=== PATIENT | female | born 1950 | race Caucasian/White ===

== ENCOUNTER 2025-06-04 15:01 | Inpatient (IN) | payer MEDICARE, BC ==
[~2025-06-04] VITALS: Ht 165.1 cm; Wt 99.0 kg
[2025-06-04 15:53] LABS: LEUKOCYTE ESTERASE ,URINE NEGATIVE (Neg); NITRITES, URINE NEGATIVE (Neg); OCCULT BLOOD,URINE MODERATE (Neg); UA COLLECTION TYPE FOLEY CATH
[2025-06-04] MEDS ORDERED: LEVO150T8 PO (15:53)
[2025-06-04] MEDS ORDERED: GABA300T25 PO (15:53)
[2025-06-04] MEDS ORDERED: CHOL500044 PO (15:53)
[2025-06-04] MEDS ORDERED: HYDR-3972 PO (15:53)
[2025-06-04] MEDS ORDERED: ROSU10TA72 PO (15:53)
[2025-06-04] MEDS ORDERED: CELE-148 PO (15:53)
[2025-06-04] MEDS ORDERED: DICY20TA17 PO (15:53)
[2025-06-04] MEDS ORDERED: MONT-40 PO (15:53)
[2025-06-04] MEDS ORDERED: LISI20TA28 PO (15:53)
[2025-06-04 15:56] LABS: MEAN PLATELET VOLUME 9.5 FL (7.4-10.4); RED CELL DISTRIBUTION WIDTH 16.5 % (11.5-14.5)
--- NOTE | 2025-06-04 15:57 | Physician Documentation ---
History of Present Illness ~ Chief Complaint: ALOC Stated Complaint: ACUTE RENAL FAILURE Time Seen by MD: 15:40 Source: patient (11), RN/MD (transfer facility) HPI Patient transferred to us from [facility] for possible stroke. Patient herself has some word-finding difficulty and word salad, but transferring physician indicates the last known normal was about 8:00 p.m.. She was noted last night to be slurring, to have some dysphagia, and dropping things, unable to hold a coffee cup in her hand. There was some questionable confusion as well. Patient tells me that she has some numbness to the left face and arm, but it appears this might have been secondary to a neck surgery that she had in September and symptoms are not new. CT was performed at the transferring facility but the patient showed no acute pathology. She was found to have an acute kidney injury as well as potassium level of 6.8, and was treated with calcium, albuterol, insulin/D50 prior to coming in. She also received 2L intravenous fluid resuscitation. Patient denies checking her temperature but might have been febrile over the last day or two, and is found to have a low-grade temperature of 100.2 on arrival. She was transferred here for further neurologic evaluation. Labs from transferring facility: WBC 11.4, hemoglobin 10.7, hematocrit 34.1, platelets 203 Protime 11.6 Glucose 104, BUN 78, creatinine 4.3, GFR 10, calcium level 8.9, CO2 15, chloride 102, sodium 134, potassium 6.4, magnesium 2.2, transaminase: AST 32, ALT 12, alk-phos 64 troponin normal at 0.049, urinalysis 0-2 white cells 5-10 red cells, negative nitrite and leukocyte CT brain: No intracranial hemorrhage, no extra-axial collection, slight hyperdensity along the falx is favored to relate to calcification and not layering hemorrhage. No mass or mass effect. Decker-white matter differentiation preserved. Ventricles/sulci appropriate for patient age. Focally severe intracranial carotid atherosclerosis. EKG sinus rhythm 88 with a first-degree AV block and nonspecific ST abnormalities. Urinalysis was still pending Medication Reconciliation Allergies: Uncoded Allergies: BEE (Adverse Reaction, Unknown, ANAPHALAXIS, 06/04/25) Scheduled Celecoxib (Celecoxib), 1 CAP PO BID, (Reported) Cholecalciferol (Vitamin D3) (Vitamin D3), 1 TAB PO DAILY, (Reported) Gabapentin (Gralise), 300 MG PO DAILY, (Reported) Levothyroxine Sodium (Levothyroxine Sodium), 1 TAB PO DAILY, (Reported) Lisinopril (Lisinopril), 1 TAB PO DAILY, (Reported) Montelukast Sodium (Montelukast Sodium), 1 TAB PO HS, (Reported) Scheduled PRN Hydrocodone Bit/Acetaminophen (Hydrocodon-Acetaminophn 10-325 tablet), 1-2 TAB PO Q4H PRN for severe pain, (Reported) Miscellaneous Medications Dicyclomine HCl (Dicyclomine HCl), 1 TAB PO, (Reported) Rosuvastatin Calcium (Rosuvastatin Calcium), 1 TAB PO, (Reported) Past Medical History Past Medical History: High Cholesterol, Hypertension, Thyroid (unspecified) Smoking Status: Current some day smoker Alcohol Use: None Drug Use: none Review of Systems All Other Systems at this time: Reviewed and Negative Physical Exam Vital Signs: Temperature: 100.2, Heart Rate: 107, Respiratory Rate: 19, BP: 74/53, Pulse Oximetry: 94, Weight: 99.000 General Appearance General: Pt is awake, alert, oriented x4 in no acute distress, but is having difficulty communicating due to word finding difficulty and "word salad." Head: Normocephalic and atraumatic. Eyes: Conjunctiva normal. ENT: Mucous membranes moist. Neck: Supple. Chest: Clear to auscultation bilaterally, without rales, rhonchi, or wheezes. There is no accessory muscle use or retractions. Cardiac: Regular rate and rhythm without murmurs, gallops or rubs. Palpation of the chest wall is normal. Abd: Soft, nondistended, nontender, with normoactive bowel sounds. No guarding or rebound. Extremities: Within normal limits without cyanosis, clubbing, or edema. Skin: [place], warm and dry with no significant rash appreciated. Neuro: Cranial nerves II-XII intact. Motor strength 5/5 throughout, but there is an asterixis-type "flap" to both hands (no pronator drift) She reports baseline relative numbness to the LUE. Gait not tested. Progress Results/Orders Results/Orders Orders - JOSHUA KING MD Culture Blood (06/04/25 15:17) Chest,Single View (06/04/25 15:17) Monitor (06/04/25 15:17) Oxygen (06/04/25 15:17) Saline Lock (06/04/25 15:17) Md To Page (06/04/25 16:03) Page Hospitalist (06/04/25 16:40) Fill Out Med Reconciliation (06/04/25 16:40) Completed Orders - JOSHUA KING MD Cbc/Diff (06/04/25 15:17) Chest,Single View (06/04/25 15:17) Procalcitonin (06/04/25 15:17) BMP (06/04/25 15:17) Lacticsepsis (06/04/25 15:17) Ua W/Microscopic, Cult If Ind (06/04/25 15:31) Vital Signs 06/04/25 06/04/25 15:07 15:34 Temp 100.2 Pulse 107 Resp 19 B/P (MAP) 74/53 Pulse Ox 94 94 O2 Delivery Room Air* O2 Flow Rate 0 FiO2 21 Laboratory Tests Test 06/04/25 15:31 06/04/25 15:39 Urine Specimen Description Ricardo cath Urine Color Straw Urine Clarity Clear Urine pH 6.0 Urine Specific [place] 1.010 Urine Protein Negative Urine Glucose (UA) Negative Urine Ketones Negative Urine Occult Blood Moderate H Urine Nitrite Negative Urine Bilirubin Negative Urine Urobilinogen 0.2 Urine Leukocyte Esterase Negative Urine RBC 0-2 Urine WBC 0-4 Urine Squamous Epithelial Cells None seen Urine Renal Cells Few Urine Bacteria Few Urine Mucus None seen Urine Culture Indicated Not ind Volume Urine Centrifuged 10 ml Urine Comment White Blood Count 11.5 H Red Blood Count 3.31 L Hemoglobin 9.9 L Hematocrit 31.1 L Mean Corpuscular Volume 93.9 Mean Corpuscular Hemoglobin 30.0 Mean Corpuscular Hemoglobin Concent 32.0 L Red Cell Distribution Width 16.5 H Platelet Count 177 Mean Platelet Volume 9.5 Neutrophils (%) (Auto) 65.1 Lymphocytes (%) (Auto) 25.9 Monocytes (%) (Auto) 6.9 Eosinophils (%) (Auto) 1.8 Basophils (%) (Auto) 0.3 Neutrophils # (Auto) 7.5 Lymphocytes # (Auto) 3.0 Monocytes # (Auto) 0.8 Eosinophils # (Auto) 0.2 Basophils # (Auto) 0.0 CBC Comment Sodium Level 137 Potassium Level 4.8 Chloride Level 107 Carbon Dioxide Level 15.3 L Anion Gap 15 Blood Urea Nitrogen 81 H Creatinine 3.73 H Estimated GFR/1.73 m2 12 BUN/Creatinine Ratio 21.7 H Glucose Level 98 Lactic Acid Level 1.4 Calcium Level 8.5 Albumin 3.1 L Procalcitonin 4.53 H Chemistry Comments Consults/PCP Consults/PCP #1: Time Call Requested: 16:11 Consult Reason/Comments: [facility] Additional Comment 16:18 Initial discussion with Teleneurology physician (Marianna Phelps?) She will be evaluating patient now. 16:35 Evaluation discussed with neurologist. Other than her slight left facial droop, she feels that there is not a lot to suggest stroke here, but favors an overall impression of a toxic metabolic picture, possible uremic encephalopathy. She feels that CT angiogram nor aspirin is not indicated at the moment, but does suggest MRI and if MRI is positive then to proceed with the rest of the stroke workup. This will be communicated to the admitting team, and they will have the neurologist's note as well. Consults/PCP #2: Time Call Requested: 16:37 Consult Reason/Comments: Hospitalist Additional Comment 16:48 Case d/w Dr. Lyons, who will be admitting for further workup Medical Decision Making Additional Information Patient presented as a possible stroke, but with atypical symptoms. The history is somewhat in question as family is now stating that the patient might have had symptoms for the last week and a half, and certainly she has evidence for acute kidney injury with accompanying hyperkalemia. This was treated at the transferring facility and potassium is now normal, with improvement in the creatinine level. LFTs and alkaline phosphatase were performed at the transferring hospital and were not elevated, despite the physical exam findings which appears somewhat typical for asterixis. Patient's electrolytes are otherwise unremarkable. No evidence for urinary tract infection or pneumonia. CT scan of the head was otherwise unremarkable as well. She will be admitted to the hospitalist service for further management of her acute kidney injury, and for MRI, to proceed with the rest of the stroke workup if indicated. Departure Time of Disposition: 16:39 Admitted to Inpatient Unit: yes, to hospitalist Impression: Primary Impression: Altered mental status Additional Impressions: Acute kidney injury hyperkalemia, resolved Possible stroke symptoms Condition: Guarded Referrals: NO PRIMARY CARE PROVIDER (PCP) Education Educated: Patient, Family Educated regarding: diagnosis, treatment Signature Scribe Signature: Attestation: JOSHUA KING MD Jun 04, 2025 15:57
--- NOTE | 2025-06-04 16:00 | RADIOLOGY REPORT ---
EXAM: DI CHEST,SINGLE VIEW TECHNIQUE: Single frontal chest radiograph CLINICAL HISTORY: SOB COMPARISON: None Findings/Impression: Frontal chest radiograph demonstrates no acute osseous or superficial soft tissue abnormalities. The trachea is midline. The cardiac silhouette and mediastinum are within normal limits. No pneumothorax, pleural effusions, or consolidations.
[2025-06-04 16:07] LABS: CREATININE 3.73 MG/DL (0.40-0.90); TOTAL CARBON DIOXIDE 15.3 MMOL/L (24-32); eCRCL 12 ML/MIN; eGFR 12 ML/MIN
[2025-06-04 16:10] LABS: MUCUS STRANDS NONE SEEN /LPF (Neg); RENAL CELLS, URINE FEW /HPF; SQUAMOUS EPITHELIAL CELL,UR NONE SEEN /LPF (FEW)
--- NOTE | 2025-06-04 16:32 | [facility] CONSULT REPORT ---
[facility] Procedure Note [facility] Procedure Note Consult [facility] Note # Demographics Consult Type: General Neurology Patient Location: Emergency Room First Name: MUNA Last Name: JV Date of : 1950 Age: 75 Gender: Female Facility: [facility] Time of Initial Page (): 06/04/2025 16:14 Time of Return Call (): 06/04/2025 16:15 # HPI History: 75yof with hypothyroidism who was transferred from an OSH for possible stroke. She has been more confused over the past week or week and a half, dysarthric, having issues holding a coffee cup in both hands, and seemed confused. Had a CTH which was negative at OSH. On exam, has some asterixis and L facial droop. Found to have JOSE M. # Scores Time of exam and NIHSS (): 06/04/2025 16:22 Level of Consciousness 1a: [0] = Alert; keenly responsive LOC Questions 1b: [0] = Answers both questions correctly LOC Commands 1c: [0] = Performs both tasks correctly Best Gaze 2: [0] = Normal Visual 3: [0] = No visual loss Facial Palsy 4: [1] = Minor paralysis Motor Arm Left 5a: [0] = No drift Motor Arm Right 5b: [0] = No drift Motor Leg Left 6a: [0] = No drift Motor Leg Right 6b: [0] = No drift Limb Ataxia 7: [0] = Absent Sensory 8: [1] = Vplj-vw-fhzoogeb sensory loss Best Language 9: [1] = Slye-il-oqjfbgpo aphasia Dysarthria 10: [1] = Ponr-xu-kpfpslrr dysarthria Extinction and Inattention 11: [0] = No abnormality NIHSS Total: 4 # Assessment Impression: - Altered Mental Status # Plan Thrombolytic/Intervention: NOT IV Thrombolysis or IA Intervention candidate Thrombolytic Exclusion: > 4.5 hours Intraarterial Exclusion: - clinical exam not consistent with presence of large vessel occlusion (LVO), can reconsider if LVO found on vascular imaging Labs: - ua Full infectious and metabolic workup for AMS Ammonia, B12, folate, thyroid, thiamine Imaging: (urgency: routine): - MRI Brain without contrast Other: - If patient has any neurological deterioration please call me back immediately - would not pursue stroke work-up if MRI is negative # Logistics Attestation of consult completion: The patient is located at: [facility]. Facility staff participated in the visit. I performed this telemedicine visit from my offsite office utilizing interactive 2 way audio and visual telecommunication technology. Total time spent in telemedicine encounter: I spent 23 minutes reviewing clinical data and/or imaging, obtaining history, examining the patient, communicating with the onsite care team, and in preparation of this report. # Demographics First Name: MUNA Last Name: JV Facility: [facility] Neuro Consult Order placed for: Yes CHANTAL ARMAS MD Jun 04, 2025 16:32
[2025-06-04] MEDS ORDERED: magnesium Cl slow-release 64mg tablet PO PRN (17:25)
[2025-06-04] MEDS ORDERED: magnesium sulf-water 4G/100mL 100 ML IV PRN (17:25)
[2025-06-04] MEDS ORDERED: potassium Cl 20 mEq SR tablet PO PRN ×2 (17:25)
[2025-06-04] MEDS ORDERED: magnesium sulf-water 2g/50mL 50 ML IV PRN (17:25)
[2025-06-04] MEDS ORDERED: potassium Cl 40MEQ/1/2NS 520ml 520 ML IV PRN (17:25)
[2025-06-04] MEDS: normal saline 1000ml 1,000 ML IV SCH (17:53)
--- NOTE | 2025-06-04 18:36 | HISTORY AND PHYSICAL ---
History & Physical Providers to CC ~ History of Present Illness Reason for Admit\Complaint: Probable stroke History of Present Illness Patient is a 75 years old female who was transferred from [facility] for evaluation of a stroke. Patient states she is here because her sister monitored her to come to the hospital as sister noted that patient was not talking right,, having some dysphagia and was dropping things unable to hold a coffee cup in her hand. Patient reported some numbness on the left side of face her arm to the ER physician however when I interviewed her she did not have any such complaints. CT scan was performed at [facility] which was negative for any acute pathology. Patient was noted to have a potassium of 6.8 and a creatinine of 4.8. She was treated with calcium, albuterol, insulin/D50 prior to being transferred. Patient was also given 2 L of IV fluids. Her potassium level is down to 4.8 now. Tele neurology has been consulted. No CTA or aspirin is recommended however because of her symptoms, it is recommended that patient be evaluated with an MRI of her brain. Patient denies having any recent fever chills chest pain abdominal pain dysuria frequency urgency hematuria melena or bright red blood per rectum. She has been admitted for treatment of her acute kidney injury and to obtain an MRI even though I have low suspicion that patient had a stroke and likely has metabolic encephalopathy due to her JOSE M.. Allergies: Uncoded Allergies: BEE (Adverse Reaction, Unknown, ANAPHALAXIS, 06/04/25) Home Medications Home Medications Active Reported Rosuvastatin Calcium 10 Mg Tablet 1 Tab PO Montelukast Sodium 10 Mg Tablet 1 Tab PO HS Levothyroxine Sodium 150 Mcg Tablet 1 Tab PO DAILY Vitamin D3 (Cholecalciferol (Vitamin D3)) 125 Mcg (5000 Unit) Tablet 1 Tab PO DAILY Lisinopril 20 Mg Tablet 1 Tab PO DAILY Gralise (Gabapentin) 300 Mg Tab.er.24h 300 Mg PO DAILY Celecoxib 100 Mg Capsule 1 Cap PO BID Hydrocodon-Acetaminophn 10-325 tablet (Acetaminophen/Hydrocodone Bitart) 10mg- 325mg Tablet 1-2 Tab PO Q4H PRN Dicyclomine HCl 20 Mg Tablet 1 Tab PO Past Medical History Past Medical History Hypertension Hypothyroidism Chronic neck pain Family History Family History: Family history was reviewed; no changes noted. Past Social History Social History Comment Does not smoke drink or do any drugs. Health Maintenance Health Maintenance Patient reports she is current on her immunizations ROS ROS All other systems are reviewed and are negative except as mentioned in HPI Exam Vitals: Vital Signs Date Time Temp Pulse Resp B/P (MAP) Pulse Ox O2 Delivery O2 Flow Rate FiO2 06/04/25 16:53 84 18 121/64 (83) 94 0 06/04/25 15:34 Room Air* 21 06/04/25 15:07 100.2 General: Awake cooperative in no acute distress HEENT: Normocephalic, atraumatic, extraocular movements are intact, sclerae anicteric, conjunctiva pink, , dry oral mucosa Neck: Supple, no JVD, trachea midline Chest: Clear to auscultation, no wheezes crackles rhonchi Cardiovascular: Regular rate rhythm, no murmur or gallop rub Abdomen: Soft, nontender, no organomegaly Extremities: No cyanosis clubbing or edema Central Nervous System: Nonfocal. Moves all four extremities Musculoskeletal: No joint swelling or deformities Skin: No rash or ulcers Diagnostic Data Last Recorded Lab Results: 06/04/25 1539 06/04/25 1539 Additional Plan Patient is a 75 years old female who was transferred from [facility] for evaluation of stroke-like symptoms 1. JOSE M: Monitor daily creatinine. We will start her on IV fluids. Request Nephrology consultation. May need bicarb . 2. Sirs/Sepsis: Patient had a temp of 100.2 and a blood pressure of 74/53 in the ER. She has a negative UA and a normal chest x-ray. We will hold off on antibiotics at this time as there is no source of infection. Check procalcitonin. 3. Hypothyroidism: Continue levothyroxine 4. HTN: Hold lisinopril due to renal failure, continue monitor 5. Peripheral neuropathy: Continue gabapentin 6. Code status: Patient wishes to be a Full code. 7. DVT prophylaxis: SCDs and early ambulation Date of Service: Jun 05, 2025 Billing Provider: VA NEVES MD Common Visit Codes: 94450-[id number] INP/OBS CARE (HIGH) VA NEVES MD Jun 04, 2025 18:36
[2025-06-04 20:10] VITALS: BP 128/41; PULSE 89; TEMP 97.8; TEMP 98.8; O2SAT 97
[2025-06-04] MEDS: K and/or MAG REPLACEMENT MC SCH (20:10)
[2025-06-04 20:15] VITALS: RESP 16; O2SAT 97
[2025-06-04 23:00] VITALS: BP 116/59; PULSE 79; TEMP 99.7; O2SAT 93
[2025-06-05 05:00] VITALS: BP 114/68; PULSE 73; RESP 13; TEMP 97.7; O2SAT 95
[2025-06-05 05:53] LABS: MEAN PLATELET VOLUME 9.9 FL (7.4-10.4); RED CELL DISTRIBUTION WIDTH 15.9 % (11.5-14.5)
[2025-06-05 06:08] LABS: CREATININE 1.75 MG/DL (0.40-0.90); eCRCL 25 ML/MIN; eGFR 28 ML/MIN
[2025-06-05 06:16] LABS: TOTAL CARBON DIOXIDE 13.8 MMOL/L (24-32)
[2025-06-05] MEDS: sodium bicarbonate 1meq/ml inj 150 ML in sodium chloride 0.45% 1,000 ML IV SCH (07:57)
[2025-06-05] MEDS: SODIUM ZIRCONIUM CYCLOSILICATE 10 GM POWD.PACK PO ONE (07:57)
--- NOTE | 2025-06-05 08:57 | PROGRESS NOTE ---
Daily Progress Note Providers to CC ~ Antibiotic Timeout Antibiotic Ordered?: No Subjective Patient is awake and cooperative, feels much better. RN reports that patient refused to have an MRI. Objective Vital Signs Date Time Temp Pulse Resp B/P (MAP) Pulse Ox O2 Delivery O2 Flow Rate FiO2 06/04/25 23:00 99.7 79 116/59 (78) 93 Room Air 06/04/25 20:15 16 0.0 21 Result Diagram: 06/05/25 0422 06/05/25 0422 Awake alert cooperative in no acute distress HEENT normocephalic atraumatic extraocular movements are intact Neck supple, no JVD Chest: Clear to auscultation, no wheezes crackles rhonchi Heart regular rate rhythm, no murmur or gallop rub Abdomen is soft nontender no organomegaly Extremities no cyanosis clubbing or edema Neuro exam is nonfocal. Other Results Medications reviewed Problem\Assessment\Plan 75 years old female presented to the ER for evaluation of confusion, slurred speech. 1. Metabolic encephalopathy: Improving. Patient is much more awake and alert. 2. Stroke ruled out: Patient is refusing MRI. 3. Hyperkalemia: Lokelma and further treatment per brim and crown presser 4. JOSE M/metabolic acidosis: Creatinine is trending down. ? Due to lisinopril. Continue bicarb drip per Nephrology. 5. Hypothyroidism: Continue levothyroxine 6. Chronic neck pain: Address pain control as necessary 7. Hyperlipidemia: Continue statin 8. Code status: Full code 9. Other: DC Ricardo catheter and continue PT. Date of Service: Jun 05, 2025 Billing Provider: VA NEVES MD Common Visit Codes: [id number] INP/OBS CARE(HIGH) VA NEVES MD Jun 05, 2025 08:57
[2025-06-05 10:00] VITALS: BP 120/79; PULSE 78; RESP 17; TEMP 97.3; O2SAT 96
[2025-06-05] MEDS: levoTHYROXINE 75mcg tablet PO SCH (12:15)
--- NOTE | 2025-06-05 14:51 | CONSULTATION REPORT - RESIDENT ---
Consult Providers to CC Resident Creating Document: MACKALISAFE RES History of Present Illness Primary Medical Doctor: [facility]– [place] Reason for Admit\Complaint: Acute onset Arm and facial weakness History of Present Illness This is a 75-year-old female patient who presented with symptoms of new onset weakness of her hand with dropping of a coffee cup and associated mumbling/incoherent speech in the morning due to which was brought into the hospital for further evaluation for a stroke by her sister. The patient only remembers dropping her coffee cup and does not have recollection of any of the events after that including being evaluated at the other hospital. She does state that over the last few days she has felt increasingly fatigued and under the weather. Patient does not have a good appetite and in general does not eat or drink much. However, she reports no fevers or chills, no diarrhea, nausea or vomiting, change in medications or new supplements. She has been taking lisinopril and Celebrex for over the last 20 years and this has never happened to her before. Allergies: Uncoded Allergies: BEE (Adverse Reaction, Unknown, ANAPHALAXIS, 06/04/25) Home Medications Home Medications Active Reported Rosuvastatin Calcium 10 Mg Tablet 1 Tab PO Montelukast Sodium 10 Mg Tablet 1 Tab PO HS Levothyroxine Sodium 150 Mcg Tablet 1 Tab PO DAILY Vitamin D3 (Cholecalciferol (Vitamin D3)) 125 Mcg (5000 Unit) Tablet 1 Tab PO DAILY Lisinopril 20 Mg Tablet 1 Tab PO DAILY Gralise (Gabapentin) 300 Mg Tab.er.24h 300 Mg PO DAILY Celecoxib 100 Mg Capsule 1 Cap PO BID Hydrocodon-Acetaminophn 10-325 tablet (Acetaminophen/Hydrocodone Bitart) 10mg- 325mg Tablet 1-2 Tab PO Q4H PRN Dicyclomine HCl 20 Mg Tablet 1 Tab PO Past Medical History Past Medical History Chronic pain syndrome Hypertension Hypothyroidism Hyperlipidemia Past Surgical History Surgical History Comment No significant past surgical history ROS ROS As stated above in the HPI, otherwise all systems are reviewed and negative. Exam Vitals: Vital Signs Date Time Temp Pulse Resp B/P (MAP) Pulse Ox O2 Delivery O2 Flow Rate FiO2 06/05/25 08:00 Room Air 0.0 21 06/04/25 23:00 99.7 79 116/59 (78) 93 06/04/25 20:15 16 General: General: Awake and Alert, no acute distress. Resp: Unlabored. Lungs clear to auscultation bilaterally. Heart: Regular Rate and rhythm, normal S1 and S2 without murmur, rub or gallop. Abdomen: Soft and non tender no organomegaly Extremities: No cyanosis,clubbing or edema. 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 No cranial nerve deficits. Skin: Warm and Dry. Diagnostic Data Last Recorded Lab Results: 06/05/2542106/05/25421 Additional Plan 1. Acute kidney injury: Improving Non-anion gap metabolic acidosis secondary to above; hyperkalemia Improved with IV fluid resuscitation Hold lisinopril and stop Celebrex at discharge Ricardo's catheter in place- can be removed and trial of voiding to be done. Negative fluid balance of 1700 mL To expect increased urine output tomorrow as a recovery of the JOSE M. Bicarbonate/NAGMA will improve with the recovery of the renal function and with bicarb drip. Drip can be discontinued when bicarbonate reaches greater than 18 Lokelma b.i.d. today and daily starting tomorrow for the next five days Continue monitoring BMP, repeat today at 6:00 p.m. and daily from tomorrow 2. Acute onset weakness: Suspect hyperkalemia induced weakness/TIA Neurology recommends MRI; patient unwilling Lokelma for elevated potassium Recommend oral hydration by at least 2-3 L of fluid every day at discharge PT eval and treat for discharge planning Lines: PIV; Ricardo's catheter to be removed Code status: Full code Fe Pisano PGY3, Internal medicine resident Date of Service: Jun 05, 2025 Billing Provider: FLOR HOPKINS III, DEEPANJALI, RES Jun 05, 2025 14:51
[2025-06-05] MEDS: SODIUM ZIRCONIUM CYCLOSILICATE 10 GM POWD.PACK PO SCH (15:53)
[2025-06-05] MEDS: ondansetron/PF 4mg/2ml inj IV PRN (15:53)
[2025-06-05] MEDS ORDERED: ROSU10TA72 PO (16:40)
[2025-06-05] MEDS ORDERED: DICY10CA88 PO (16:40)
[2025-06-05 18:00] VITALS: BP 142/84; PULSE 87; RESP 18; TEMP 98.2; O2SAT 96
[2025-06-05] MEDS: NUT.TX.IMP.RENAL FXN,LAC-REDUC (Nepro) 237 ML VANILLA PO SCH (18:00)
[2025-06-05 22:00] VITALS: BP 119/60; PULSE 76; RESP 18; TEMP 98; O2SAT 95
[2025-06-06 04:17] LABS: MEAN PLATELET VOLUME 9.1 FL (7.4-10.4); RED CELL DISTRIBUTION WIDTH 15.3 % (11.5-14.5)
[2025-06-06 04:29] LABS: CREATININE 0.84 MG/DL (0.40-0.90); TOTAL CARBON DIOXIDE 22.8 MMOL/L (24-32); eCRCL 52 ML/MIN; eGFR 66 ML/MIN
[2025-06-06 05:00] VITALS: BP 110/53; PULSE 78; RESP 13; TEMP 98; O2SAT 94
[2025-06-06 06:12] LABS: FOLATE SERUM(FOLIC) 8.9 ng/mL (>3.0)
[2025-06-06] MEDS ORDERED: SODIUM ZIRCONIUM CYCLOSILICATE 10 GM POWD.PACK PO SCH (08:00)
[2025-06-06] MEDS ORDERED: CefTRIAXone/D5W-Rocephin 1gm 50 ML IV ONE (08:45)
--- NOTE | 2025-06-06 09:24 | RADIOLOGY REPORT ---
CLINICAL INFORMATION: Acute kidney injury. TECHNIQUE: Grayscale sonographic imaging of the kidneys and bladder was performed, assisted by color Doppler technique. COMPARISON: None FINDINGS: The right kidney measures 11.5 cm in length. No hydronephrosis. Unremarkable cortical th ickness and echogenicity. The left kidney measures 10.1 cm in length. No hydronephrosis. Unremarkable cortical thickness and echogenicity. Prevoid bladder volume measured 99 mL. No bladder wall thickening or mass visualized. Ureteral jets w ere not able to be visualized. IMPRESSION: 1. No hydronephrosis. Otherwise grossly unremarkable sonographic appearance of both kidneys 2. Bladder is underdistended but appears otherwise grossly unremarkable. Neither ureteral jet was vis ualized.
--- NOTE | 2025-06-06 09:24 | PROGRESS NOTE- Residence ---
Progress Note - Resident Providers to CC Resident Creating Document: MARCIA IPSANO, RES ~ Central Line/PICC still needed: No Ricardo-Non Protocol Ricardo Indications Met/Not Met: F/C Indications Not Met Antibiotic Timeout Antibiotic Ordered?: No Subjective Patient is comfortable at bedside. She is able to urinate while on her own after discontinue the Ricardo's catheter. She is reports feeling less fatigued today and more awake. No other acute overnight events. Objective Vital Signs Date Time Temp Pulse Resp B/P (MAP) Pulse Ox O2 Delivery O2 Flow Rate FiO2 06/05/25 22:00 98.0 76 18 119/60 (79) 95 Room Air 06/05/25 08:00 0.0 21 Result Diagram: 06/06/25 0350 06/06/25 0350 General: Awake and Alert, no acute distress. Resp: Unlabored. Lungs clear to auscultation bilaterally. Heart: Regular Rate and rhythm, normal S1 and S2 without murmur, rub or gallop. Abdomen: Soft and non tender no organomegaly Extremities: No cyanosis,clubbing or edema. Skin: Warm and Dry. Assessment Assessment 75-year-old female patient who was transferred from [place] for acute kidney injury improved with IV fluid therapy and has had good urine output to. Secondary to the fact that the renal function improved with IV fluids, she was treated for acute renal injury secondary to prerenal injury and her electrolytes have corrected since her renal function improved. Plan Plan 1. Acute kidney injury: Resolved Non-anion gap metabolic acidosis secondary to above; hyperkalemia Improved with IV fluid resuscitation Hold lisinopril and stop Celebrex at discharge Good urine output. Corrected electrolytes Bicarb drip stopped. Bicarbonate improved with resolution of acute kidney injury 2. Acute onset weakness: Suspect hyperkalemia induced weakness/TIA Neurology recommends MRI; patient unwilling Lokelma for elevated potassium resolved hyperkalemia. Potassium 4.0 today- Stop Lokelma. Does not need Lokelma at discharge either as the JOSE M resolved as well. Recommend oral hydration by at least 2-3 L of fluid every day at discharge Lines: PIV; Ricardo's catheter to be removed Code status: Full code Nephrology will sign off. Patient to follow up with Dr. Suarez in clinic. Marcia Pisano PGY3, Internal medicine resident Date of Service: Jun 06, 2025 Billing Provider: FLOR SUAREZ III, DEEPANJALI, RES Jun 06, 2025 09:24
[2025-06-06] MEDS: levoFLOXACIN 750MG TABLET PO ONE (10:12)
[2025-06-06] MEDS: levoFLOXACIN 750MG TABLET PO SCH (10:58)
[2025-06-06 11:00] VITALS: BP 134/68; PULSE 93; RESP 19; TEMP 97.9; O2SAT 97
[2025-06-06] MEDS ORDERED: ASPI81TA52 PO (11:16)
[2025-06-06] MEDS ORDERED: NITR100C PO (11:16)
--- NOTE | 2025-06-06 13:51 | DISCHARGE SUMMARY ---
Discharge Summary Providers to CC ~ Discharge Summary Admission Diagnosis: Metabolic encephalopathy,JOSE M Hospital Course DATE OF ADMISSION: 06/04/25 DATE OF DISCHARGE: 06/06/25 Discharge Diagnosis\\Comment: Acute metabolic encephalopathy 2/2 uremia Prerenal JOSE M 2/2 dehydration/vasomotor nephropathy Metabolic acidosis, AGMA Hyperkalemia UTI CVA- cannot be excluded Chronic cervicalgia Hyperlipidemia Malnutrition, mild Operations\\Procedures: None Consultants: Bread Racker Dr. Reji Suarez Teleneurologist Dr. Marianna Phelps Complications: None Condition on DC: Stable New Medications: Aspirin (Aspirin EC) 81 Mg Tablet.dr 1 TAB PO DAILY for 30 Days, #30 TAB Nitrofurantoin Macrocrystal (Nitrofurantoin) 100 Mg Capsule 1 CAP PO Q12H for 7 Days, #14 CAP 0 Refills Continued Medications: Cholecalciferol (Vitamin D3) (Vitamin D3) 125 Mcg (5000 Unit) Tablet 1 TAB PO DAILY Dicyclomine Hcl* (Bentyl*) 10 Mg Capsule 2 CAP PO Q6H PRN for ABDOMINAL PAIN, CAP Gabapentin (Gralise) 300 Mg Tab.er.24h 300 MG PO DAILY Hydrocodone Bit/Acetaminophen (Hydrocodon-Acetaminophn 10-325 tablet) 10mg- 325mg Tablet 1-2 TAB PO Q4H PRN for severe pain Levothyroxine Sodium (Levothyroxine Sodium) 150 Mcg Tablet 1 TAB PO DAILY Lisinopril (Lisinopril) 20 Mg Tablet 1 TAB PO DAILY Montelukast Sodium (Montelukast Sodium) 10 Mg Tablet 1 TAB PO HS Rosuvastatin Calcium (Rosuvastatin Calcium) 10 Mg Tablet 1 TAB PO HS for 30 Days, #30 TAB 0 Refills Discontinued Medications: Celecoxib (Celecoxib) 100 Mg Capsule 1 CAP PO BID Discharge Summary: History of Present Illness From H&P: "Patient is a 75 years old female who was transferred from [facility] for evaluation of a stroke. Patient states she is here because her sister monitored her to come to the hospital as sister noted that patient was not talking right,, having some dysphagia and was dropping things unable to hold a coffee cup in her hand. Patient reported some numbness on the left side of face her arm to the ER physician however when I interviewed her she did not have any such complaints. CT scan was performed at [facility] which was negative for any acute pathology. Patient was noted to have a potassium of 6.8 and a creatinine of 4.8. She was treated with calcium, albuterol, insulin/D50 prior to being transferred. Patient was also given 2 L of IV fluids. Her potassium level is down to 4.8 now. Tele neurology has been consulted. No CTA or aspirin is recommended however because of her symptoms, it is recommended that patient be evaluated with an MRI of her brain. Patient denies having any recent fever chills chest pain abdominal pain dysuria frequency urgency hematuria melena or bright red blood per rectum. She has been admitted for treatment of her acute kidney injury and to obtain an MRI even though I have low suspicion that patient had a stroke and likely has metabolic encephalopathy due to her JOSE M." Hospital Course Diagnostic workups were notable for metabolic acidosis and severe renal insufficiency. Case was consulted with Teleneurologist Dr. Marianna Phelps who suggested MRI brain which patient adamantly refused. Case was also consulted with agricultural equipment salesperson Dr. Suarez. Patient was treated with intravenous fluid combined with bicarb infusion in which resolved her acute kidney injury and metabolic encephalopathy. Patient was also treated with empirical antibiotics for urinary tract infection. Renal ultrasound came back unremarkable. Patient did not experience further complications throughout the entire hospital stay and made a good recovery. Patient was seen and examined on the day of discharge. On day of discharge, vss and labs notable for resolving acute kidney injury and uremia. All labs, diagnostic workups, discharge plan discussed with patient in details during visit before discharge. All questions and concerns answered to the best of my professional knowledge. Patient is to be discharged to home to self and to follow-up with PCP within 2 weeks. Physical Exam General: A&Ox 3, NAD HEENT: Normocephalic, PERRLA Neck: Supple, trachea midline, no JVD Chest: Clear to auscultation bilaterally Cardiovascular: RRR, S1&S2 GI: Soft and nontender Extremities: No cyanosis/clubbing/or edema WAD BLANKING PRESS ADJUSTER: CN II-XII intact, no focal deficits Musculoskeletal: No paraspinal muscle tenderness, no muscle spasm Skin: Warm and intact *Problems/Diagnosis: (1) Acute kidney injury Status: Acute (2) Altered mental status Status: Acute Total Time Spent on D/C: > 30 Minutes Date of Service: Jun 06, 2025 Billing Provider: KASSY NAM Common Visit Codes: 93489-XGV/OBS DISCH DAY >30min KASSY NAM CAMPUS COORDINATOR Jun 06, 2025 13:51
[2025-06-07] MEDS ORDERED: CefTRIAXone/D5W-Rocephin 1gm 50 ML IV SCH (08:00)
== END 2025-06-06 15:43 | disposition home or self-care (01) | DRG 871 ==
LOC: ER 15:03 → ED HOLD 17:28 → SUR 3N 20:14
PROVIDERS: ADMIT Internal Medicine; ATTEND Internal Medicine
DX: A41.9 Sepsis, unspecified organism (principal); G93.41 Metabolic encephalopathy; N17.0 Acute kidney failure with tubular necrosis; I63.9 Cerebral infarction, unspecified; N39.0 Urinary tract infection, site not specified; E44.1 Mild protein-calorie malnutrition; E86.0 Dehydration; E78.00 Pure hypercholesterolemia, unspecified; M54.2 Cervicalgia; G89.29 Other chronic pain; E87.5 Hyperkalemia; I10 Essential (primary) hypertension; E03.9 Hypothyroidism, unspecified; Z87.891 Personal history of nicotine dependence; Z91.030 Bee allergy status; Z68.36 Body mass index [BMI] 36.0-36.9, adult
CPT/HCPCS: 36415; 71045; 76770; 80048; 81001; 82140; 82607; 82746; 82948; 83605; 83735; 84132; 84145; 84439; 84443; 85025; 87040; 87081; 97161; 97530; 99285; A4620; G0378; J2405; J3490; J7030